=== PATIENT | male | born 1950 | race American Indian/Alaskan Native ===

== ENCOUNTER 2016-09-15 13:19 | Emergency (ER) | payer MEDICARE ==
[2016-09-15] MEDS ORDERED: DILAUDID IM ONE (14:20)
[2016-09-15] MEDS ORDERED: ZOFRAN ODT PO ONE (14:21)
--- NOTE | 2016-09-15 14:30 | Emergency Department Report ---
ED General Adult HPI - General Chief complaint: Pain General Stated complaint: ABD PAIN Time Seen by Provider: 09/15/16 14:07 Source: patient, EMS Mode of arrival: Stretcher Limitations: No Limitations - History of Present Illness Initial comments: The patient complains of dysuria straining upon attempting to urinate in the urethral area. He has a history of bilateral nephrostomy tubes. He states that he flushed them and they seemed to be draining normally. He states he is unable to urinate through his penis which appears to be chronic per his history since October 2014. He has a history of bladder cancer. He has paperwork that has referred him to palliative care. He states that a Quiros catheter does not help this problem and he does not desire a Quiros catheter at this time. He is unable to urinate any significant amount of volume. However, this appears to be an entirely chronic condition. He also has some paperwork with him indicating chronic mental health issues. He states that he is scheduled for bladder surgery the of the current month at the [facility] by interventional radiology. The patient called EMS due to the above complaints and requested transport to the [facility]. However, since that is remote from [facility] he was brought to [facility] instead. He is currently taking morphine chronically as well as Percocet for breakthrough pain. -: year(s) (since October 2014) - Related Data Allergies Allergy/AdvReac Type Severity Reaction Status Date / Time No Known Allergies Allergy Unverified 09/15/16 13:39 ED Review of Systems ROS: Stated complaint: ABD PAIN Other details as noted in HPI Constitutional: denies: chills, fever Eyes: denies: eye pain, eye discharge, vision change ENT: denies: ear pain, throat pain Respiratory: denies: cough, shortness of breath, wheezing Cardiovascular: denies: chest pain, palpitations Endocrine: no symptoms reported Gastrointestinal: denies: abdominal pain, nausea, diarrhea Genitourinary: as per HPI. denies: urgency, dysuria Musculoskeletal: denies: back pain, joint swelling, arthralgia Skin: denies: rash, lesions Neurological: denies: headache, weakness, paresthesias Psychiatric: denies: anxiety, depression Hematological/Lymphatic: denies: easy bleeding, easy bruising ED Past Medical Hx - Past Medical History Previous Medical History?: Yes Hx of Cancer: Yes (bladder) - Surgical History Past Surgical History?: Yes Additional Surgical History: bladder surgery. urostomy placement - Social History Smoking Status: Current Every Day Smoker ED Physical Exam - General Limitations: No Limitations General appearance: alert, in no apparent distress - Head Head exam: Present: atraumatic, normocephalic - Eye Eye exam: Present: normal appearance. Absent: scleral icterus - ENT ENT exam: Present: mucous membranes moist - Neck Neck exam: Present: normal inspection - Respiratory Respiratory exam: Present: normal lung sounds bilaterally. Absent: respiratory distress - Cardiovascular Cardiovascular Exam: Present: regular rate, normal rhythm. Absent: systolic murmur, diastolic murmur, rubs, gallop - GI/Abdominal GI/Abdominal exam: Present: soft, normal bowel sounds. Absent: distended, tenderness, guarding, rebound, rigid - Rectal Rectal exam: Present: deferred - exam: Present: normal inspection, urethral discharge (there is a minimal amount of bloody discharge in the undergarment), circumcision. Absent: testicular tenderness, scrotal swelling - Extremities Exam Extremities exam: Present: normal inspection - Back Exam Back exam: Present: normal inspection - Neurological Exam Neurological exam: Present: alert, oriented X3, CN II-XII intact. Absent: motor sensory deficit - Psychiatric Psychiatric exam: Present: normal affect, normal mood - Skin Skin exam: Present: warm, dry, intact, normal color. Absent: rash ED Course Vital Signs 09/15/16 09/15/16 09/15/16 13:24 13:30 13:39 Temperature 98.1 F Pulse Rate 56 L 63 Respiratory 15 12 Rate Blood Pressure 156/88 O2 Sat by Pulse 95 Oximetry 09/15/16 09/15/16 13:41 13:45 Temperature Pulse Rate 61 Respiratory 10 L 10 L Rate Blood Pressure 156/88 O2 Sat by Pulse 98 98 Oximetry - Reevaluation(s) Reevaluation #1: I spoke with the emergency physician Dr. Resendez at [facility]. She looked at the patient's records that did indicate he is due for an interventional procedure on the . She could not ascertain what exactly was planned. Her Resendez stated that the patient had been referred to palliative care for the same complaint a ready. However she would be happy to see the patient and discussed his chronic issues/management plan with interventional radiology/urology. The patient was given analgesia here. As far as I can determine, the patient does not have an acute emergency medical condition. Therefore he will be discharged. His plan continues to be to go to the [facility]. I spoke to his "God- brother"by cell phone. He stated that he would "send someone to pick him up". 09/15/16 14:42 09/15/16 14:45 Critical care attestation.: If time is entered above; I have spent that time in minutes in the direct care of this critically ill patient, excluding procedure time. ED Disposition Clinical Impression: Bladder cancer Qualifiers: Bladder location: unspecified site Qualified Code(s): C67.9 - Malignant neoplasm of bladder, unspecified Chronic pain Qualifiers: Chronic pain type: due to neoplasm Qualified Code(s): G89.3 - Neoplasm related pain (acute) (chronic) Disposition: DISCHARGED TO HOME OR SELFCARE Is pt being admited?: No Does the pt Need Aspirin: No Condition: Stable Instructions: Chronic Pain (ED) Additional Instructions: The [facility] emergency department stated they would be happy to see you should you decide to go there as you have requested. Return as needed any acute change or worsening symptoms. Referrals: PRIMARY CARE, [Primary Care Provider] - 2-3 Days urologist, [facility] [Other] - 3-5 Days Time of Disposition: 14:47
[2016-09-15 16:26] VITALS: BP 141/85
== END 2016-09-15 16:28 | disposition home or self-care (01) ==
LOC: ED 13:19
DX: G89.3 Neoplasm related pain (acute) (chronic) (principal); C67.9 Malignant neoplasm of bladder, unspecified; F17.200 Nicotine dependence, unspecified, uncomplicated; Z93.6 Other artificial openings of urinary tract status
CPT/HCPCS: 96372; 99283; J1170; Q0162